=== PATIENT | female | born 1995 | race Hispanic/Latino ===

== ENCOUNTER 2021-07-03 11:59 | Emergency (ER) | payer OTHER ==
[2021-07-03] MEDS ORDERED: Lidocaine 1% PF 5 ML VIAL ONE (12:37)
== END 2021-07-03 13:26 | disposition home or self-care (01) ==
LOC: ERS 11:59
DX: O23.592 Infection of other part of genital tract in pregnancy, second trimester (principal); Z3A.18 18 weeks gestation of pregnancy; O13.2 Gestational [pregnancy-induced] hypertension without significant proteinuria, second trimester
CPT/HCPCS: 56405